=== PATIENT | male | born 1945 | race Two or more races ===

== ENCOUNTER 2024-01-25 18:38 | Inpatient (IN) | payer OTHER, MEDICAID ==
[~2024-01-25] VITALS: Ht 177.8 cm; Wt 84.6 kg
[2024-01-25] MEDS: ONDANSETRON HCL 4 MG/2 ML VIAL IV ONE (20:20)
[2024-01-25] MEDS: MORPHINE SULFATE 4 MG/ML SYR/VIAL IV ONE (20:20)
[2024-01-25 20:27] LABS: Eosinophils # (auto) 0 10 ^3/uL (0-0.8); Eosinophils % (auto) 0.1 % (0.0-7.0); Hemoglobin 7.4 g/dL (13.5-17.5); Red Cell Distribution Width 19.4 % (11.8-14.3)
[2024-01-25 20:29] LABS: Basophils # (auto) 0 10 ^3/uL (0-0.2); Basophils % (auto) 0.3 % (0.0-2.0); Hematocrit 23.5 % (41.0-53.0); Lymphocytes # (auto) 1.1 10 ^3/uL (0.4-5.4); Lymphocytes % (auto) 8.1 % (10.0-50.0); Mean Corpuscular Hemoglobin 24.7 pg (28.0-32.0); Mean Corpuscular Hgb Conc. 31.5 g/dL (32.0-36.0); Mean Corpuscular Volume 78.3 fL (80.0-100.0); Monocytes # (auto) 0.7 10 ^3/uL (0-1.3); Monocytes % (auto) 4.9 % (0.0-12.0); Neutrophils # (auto) 12.2 10 ^3/uL (1.6-8.6); Neutrophils % (auto) 86.6 % (37.0-80.0); Platelet Count (auto) 462 10^3/uL (140-450); White Blood Cell 14.1 10^3/uL (4.4-10.8)
[2024-01-25 20:35] VITALS: PULSE 81; RESP 15; O2SAT 99
[2024-01-25 20:39] LABS: Anion Gap 12 (5-15); Carbon Dioxide 17 mmol/L (20-31); Chloride 110 mmol/L (98-107); Potassium 4.7 mmol/L (3.5-5.1); Sodium 139 mmol/L (136-145)
[2024-01-25 20:44] LABS: Glucose 172 mg/dL (74-106); INR 1.24 (0.9-1.15); Partial Thromboplastin Time 29.3 SEC (24.5-34.5); Prothrombin Time 12.9 sec (9.3-11.8)
[2024-01-25 20:45] LABS: Alkaline Phosphatase 59 U/L (46-116); BUN/Creatinine Ratio 14.8 (10.0-20.0); Blood Urea Nitrogen 42 mg/dL (9-23)
[2024-01-25 20:46] LABS: Albumin 3.9 g/dL (3.2-4.8); Aspartate Aminotransferase 16 U/L (13-40)
[2024-01-25 20:47] LABS: Bilirubin, Total 0.4 mg/dL (0.2-1.0); Total Protein 7.4 g/dL (5.7-8.2)
[2024-01-25 21:26] LABS: Lactic Acid w/Reflex 3.2 mmol/L (0.4-2.0)
[2024-01-25 21:37] LABS: Alanine Aminotransferase < 9 U/L (7-40)
[2024-01-25] MEDS: PIPERACILLIN-TAZO 4.5GM 100 ML IV ONE (21:43)
[2024-01-25] MEDS: SODIUM CHLORIDE 0.9% 1,000 ML IV ONE (21:43)
[2024-01-25 22:09] LABS: Hypochromia Slight; Platelet Estimate Increased
[2024-01-25 22:10] LABS: Ovalocytes FEW
[2024-01-26] VITALS (15 sets, daily range): BP systolic 99–139; BP diastolic 44–80; PULSE 52–90; RESP 16–20; TEMP 97.5–98.7; O2SAT 95–100
[2024-01-26] MEDS ORDERED: ACETAMINOPHEN 325 MG TAB PO PRN
[2024-01-26] MEDS ORDERED: ONDANSETRON HCL 4 MG/2 ML VIAL IV PRN
[2024-01-26] MEDS: cefTRIAXone 1GM/50ML D5W 50 ML IV SCH (00:13)
[2024-01-26 01:03] LABS: Basophils # (auto) 0 10 ^3/uL (0-0.2); Eosinophils # (auto) 0 10 ^3/uL (0-0.8); Monocytes # (auto) 0.7 10 ^3/uL (0-1.3)
[2024-01-26 01:05] LABS: Basophils % (auto) 0.2 % (0.0-2.0); Hematocrit 18.2 % (41.0-53.0); Lymphocytes # (auto) 1.1 10 ^3/uL (0.4-5.4); Lymphocytes % (auto) 8.4 % (10.0-50.0); Mean Corpuscular Hemoglobin 25.7 pg (28.0-32.0); Mean Corpuscular Hgb Conc. 32.6 g/dL (32.0-36.0); Monocytes % (auto) 5.2 % (0.0-12.0); Neutrophils # (auto) 11.4 10 ^3/uL (1.6-8.6); Neutrophils % (auto) 86.2 % (37.0-80.0); Platelet Count (auto) 346 10^3/uL (140-450); Red Cell Distribution Width 19.4 % (11.8-14.3); White Blood Cell 13.2 10^3/uL (4.4-10.8)
[2024-01-26 01:19] LABS: Hemoglobin 5.9 g/dL (13.5-17.5)
[2024-01-26 02:48] LABS: Hypochromia Slight; Platelet Estimate Adequate
[2024-01-26] MEDS ORDERED: APIX2.5T PO (03:32)
[2024-01-26] MEDS: HYDROcodone-ACET 5/325MG TAB PO PRN (04:18)
[2024-01-26] MEDS: MORPHINE SULFATE 4 MG/ML SYR/VIAL IV PRN (09:25)
[2024-01-26 11:03] LABS: Basophils # (auto) 0.1 10 ^3/uL (0-0.2); Basophils % (auto) 0.5 % (0.0-2.0); Eosinophils # (auto) 0 10 ^3/uL (0-0.8); Eosinophils % (auto) 0.1 % (0.0-7.0); Hematocrit 26.9 % (41.0-53.0); Hemoglobin 8.6 g/dL (13.5-17.5); Lymphocytes # (auto) 1.7 10 ^3/uL (0.4-5.4); Lymphocytes % (auto) 9.1 % (10.0-50.0); Mean Corpuscular Hemoglobin 25.7 pg (28.0-32.0); Mean Corpuscular Hgb Conc. 31.8 g/dL (32.0-36.0); Mean Corpuscular Volume 80.8 fL (80.0-100.0); Monocytes # (auto) 1.1 10 ^3/uL (0-1.3); Monocytes % (auto) 5.8 % (0.0-12.0); Neutrophils # (auto) 15.8 10 ^3/uL (1.6-8.6); Neutrophils % (auto) 84.5 % (37.0-80.0); Nucleated Red Blood Cells % 0.1 %; Platelet Count (auto) 434 10^3/uL (140-450); Red Blood Cells 3.33 10^6/uL (4.5-5.90); Red Cell Distribution Width 18.6 % (11.8-14.3); White Blood Cell 18.8 10^3/uL (4.4-10.8)
[2024-01-26 11:13] LABS: Chloride 111 mmol/L (98-107); Potassium 4.8 mmol/L (3.5-5.1); Sodium 141 mmol/L (136-145)
[2024-01-26 11:14] LABS: Anion Gap 13 (5-15); Calcium 11.2 mg/dL (8.7-10.4); Carbon Dioxide 17 mmol/L (20-31)
[2024-01-26 11:19] LABS: BUN/Creatinine Ratio 13.8 (10.0-20.0); Blood Urea Nitrogen 42 mg/dL (9-23); Glucose 121 mg/dL (74-106)
[2024-01-26 11:24] LABS: Lactic Acid w/Reflex 3.8 mmol/L (0.4-2.0)
[2024-01-26 13:26] LABS: Basophils # (auto) 0.1 10 ^3/uL (0-0.2); Basophils % (auto) 0.3 % (0.0-2.0); Eosinophils # (auto) 0 10 ^3/uL (0-0.8); Hematocrit 24.4 % (41.0-53.0); Hemoglobin 7.9 g/dL (13.5-17.5); Lymphocytes # (auto) 0.9 10 ^3/uL (0.4-5.4); Lymphocytes % (auto) 4.4 % (10.0-50.0); Mean Corpuscular Hemoglobin 25.9 pg (28.0-32.0); Mean Corpuscular Hgb Conc. 32.4 g/dL (32.0-36.0); Mean Corpuscular Volume 79.9 fL (80.0-100.0); Monocytes % (auto) 5.2 % (0.0-12.0); Neutrophils # (auto) 17.8 10 ^3/uL (1.6-8.6); Neutrophils % (auto) 90.1 % (37.0-80.0); Platelet Count (auto) 395 10^3/uL (140-450); Red Blood Cells 3.06 10^6/uL (4.5-5.90); Red Cell Distribution Width 18.9 % (11.8-14.3); White Blood Cell 19.7 10^3/uL (4.4-10.8)
[2024-01-26] MEDS: SODIUM CHLORIDE 0.9% 1,000 ML IV SCH (16:10)
[2024-01-26 22:20] LABS: Urine Bacteria None Seen /hpf (None Seen)
[2024-01-26 22:31] LABS: Basophils # (auto) 0.1 10 ^3/uL (0-0.2); Eosinophils # (auto) 0 10 ^3/uL (0-0.8); Eosinophils % (auto) 0.2 % (0.0-7.0); Lymphocytes # (auto) 1.6 10 ^3/uL (0.4-5.4); Lymphocytes % (auto) 9.4 % (10.0-50.0); Neutrophils # (auto) 14.1 10 ^3/uL (1.6-8.6)
[2024-01-26 22:33] LABS: Basophils % (auto) 0.3 % (0.0-2.0); Hematocrit 23.6 % (41.0-53.0); Hemoglobin 7.8 g/dL (13.5-17.5); Mean Corpuscular Hemoglobin 26.5 pg (28.0-32.0); Mean Corpuscular Hgb Conc. 32.9 g/dL (32.0-36.0); Mean Corpuscular Volume 80.7 fL (80.0-100.0); Monocytes # (auto) 0.8 10 ^3/uL (0-1.3); Monocytes % (auto) 4.6 % (0.0-12.0); Neutrophils % (auto) 85.5 % (37.0-80.0); Platelet Count (auto) 357 10^3/uL (140-450); Red Blood Cells 2.92 10^6/uL (4.5-5.90); Red Cell Distribution Width 18.8 % (11.8-14.3); White Blood Cell 16.5 10^3/uL (4.4-10.8)
[2024-01-26 22:37] LABS: Urine Blood 3+ /uL (Negative); Urine Clarity Ex.Turbid (Clear); Urine Color Colorless (Yellow); Urine Protein, UAD TRACE (Negative); Urine Specific Gravity 1.005 (1.001-1.035); Urine Urobilinogen Normal (Negative); Urine WBC 468 /hpf (0 - 3); Urine WBC Clumps PRESENT /hpf (None Seen)
[2024-01-26 22:56] LABS: Albumin 3.4 g/dL (3.2-4.8); Alkaline Phosphatase 49 U/L (46-116); Anion Gap 8 (5-15); Aspartate Aminotransferase 15 U/L (13-40); BUN/Creatinine Ratio 15.3 (10.0-20.0); Blood Urea Nitrogen 44 mg/dL (9-23); Calcium 10.4 mg/dL (8.7-10.4); Carbon Dioxide 21 mmol/L (20-31); Chloride 113 mmol/L (98-107); Glucose 137 mg/dL (74-106); Sodium 142 mmol/L (136-145)
[2024-01-26 22:57] LABS: Bilirubin, Total 0.7 mg/dL (0.2-1.0); Total Protein 6.2 g/dL (5.7-8.2)
[2024-01-26 23:00] LABS: Alanine Aminotransferase < 9 U/L (7-40)
[2024-01-27] VITALS (9 sets, daily range): BP systolic 108–127; BP diastolic 48–61; PULSE 54–70; RESP 17–19; TEMP 97.8–98.8; O2SAT 94–100
[2024-01-27 06:43] LABS: Anion Gap 7 (5-15); Carbon Dioxide 22 mmol/L (20-31); Chloride 114 mmol/L (98-107); Sodium 143 mmol/L (136-145)
[2024-01-27 06:44] LABS: Calcium 10.8 mg/dL (8.7-10.4)
[2024-01-27 06:49] LABS: BUN/Creatinine Ratio 15.9 (10.0-20.0); Blood Urea Nitrogen 41 mg/dL (9-23); Glucose 104 mg/dL (74-106)
[2024-01-27] MEDS ORDERED: PROPOFOL 10 MG/ML 20 ML IV ONE (09:56)
[2024-01-27] MEDS ORDERED: ONDANSETRON HCL 4 MG/2 ML VIAL ONE (09:56)
[2024-01-27] MEDS ORDERED: LIDOCAINE 2% (LOCAL ANESTH.) PF 5ml SDV ONE (09:56)
[2024-01-27] MEDS ORDERED: GLYCOPYRROLATE 0.2 MG/ML 1ML VIAL ONE (09:56)
[2024-01-27] MEDS ORDERED: LIDOCAINE HCL 2% TOP JELLY 5ML TOP ONE (09:56)
[2024-01-27] MEDS ORDERED: DexAMETHasone SOD PHOS 10MG/1ML VIAL INJ ONE (09:57)
[2024-01-27] MEDS ORDERED: fentaNYL CITRATE 100 MCG/2 ML VL ONE ×2 (10:00→10:39)
[2024-01-27] MEDS ORDERED: KETAMINE 50mg/ML 1ml syringe ONE (10:00)
[2024-01-27] MEDS ORDERED: ePHEDrine SULFATE 50 MG/ML AMP ONE (10:18)
[2024-01-27] MEDS ORDERED: BISACODYL 10 MG RECT SUPP PR PRN (11:15)
[2024-01-27] MEDS ORDERED: HYDROmorphone HCL 2 MG/ML VL/or syr IV PRN (11:30)
[2024-01-27] MEDS ORDERED: hydrALAZINE HCL 20 MG/ML VL IV PRN (11:30)
[2024-01-27] MEDS ORDERED: ePHEDrine SULFATE 50 MG/ML AMP IV PRN (11:30)
[2024-01-27] MEDS ORDERED: fentaNYL CITRATE 100 MCG/2 ML VL IV PRN (11:30)
[2024-01-27] MEDS ORDERED: NALOXONE HCL 0.4 MG/ML VIAL IV PRN (11:30)
[2024-01-27] MEDS ORDERED: ONDANSETRON HCL 4 MG/2 ML VIAL IV PRN (11:30)
[2024-01-27] MEDS ORDERED: FLUMAZENIL 0.1 MG/ML INJ 10ML MDV IV PRN (11:30)
[2024-01-27] MEDS ORDERED: oxyCODONE HCL 5MG TAB PO PRN (11:30)
[2024-01-27] MEDS: OXYBUTYNIN CHL 5 MG TAB PO SCH (21:08)
[2024-01-28] VITALS (7 sets, daily range): BP systolic 110–133; BP diastolic 55–71; PULSE 62–68; RESP 17–19; TEMP 97.9–98.5; O2SAT 93–100
[2024-01-28] MEDS: MAGNESIUM CITRATE SOLUTION 300 ML BTL PO ONE (05:34)
[2024-01-28 08:41] LABS: Chloride 113 mmol/L (98-107); Potassium 4.8 mmol/L (3.5-5.1); Sodium 142 mmol/L (136-145)
[2024-01-28 08:42] LABS: Anion Gap 9 (5-15); Calcium 10.2 mg/dL (8.7-10.4); Carbon Dioxide 20 mmol/L (20-31)
[2024-01-28 08:47] LABS: BUN/Creatinine Ratio 18.3 (10.0-20.0); Blood Urea Nitrogen 36 mg/dL (9-23); Glucose 113 mg/dL (74-106)
[2024-01-28] MEDS ORDERED: CEPH500C PO (15:56)
== END 2024-01-28 17:50 | disposition home or self-care (01) | DRG 853 ==
LOC: ER 18:38 → TELE-WESTW 01-26 00:02 → TELE 01-26 00:02 → TELE-WESTW 01-26 02:44
PROVIDERS: ADMIT Nurse Practitioner Family; ATTEND Nurse Practitioner Family
PROC: 30233N1 Transfusion of Nonautologous Red Blood Cells into Peripheral Vein, Percutaneous Approach (ICD-10-PCS; 2024-01-26)
PROC: 0V508ZZ Destruction of Prostate, Via Natural or Artificial Opening Endoscopic (ICD-10-PCS; 2024-01-27)
PROC: 0TBB8ZX Excision of Bladder, Via Natural or Artificial Opening Endoscopic, Diagnostic (ICD-10-PCS; 2024-01-27)
PROC: 0TBB8ZZ Excision of Bladder, Via Natural or Artificial Opening Endoscopic (ICD-10-PCS; principal; 2024-01-27 09:58)
DX: A41.9 Sepsis, unspecified organism (principal); N17.0 Acute kidney failure with tubular necrosis; N13.6 Pyonephrosis; C67.9 Malignant neoplasm of bladder, unspecified; D64.9 Anemia, unspecified; E78.5 Hyperlipidemia, unspecified; J44.9 Chronic obstructive pulmonary disease, unspecified; N18.9 Chronic kidney disease, unspecified; I12.9 Hypertensive chronic kidney disease with stage 1 through stage 4 chronic kidney disease, or unspecified chronic kidney disease; N40.1 Benign prostatic hyperplasia with lower urinary tract symptoms; R33.8 Other retention of urine; R31.0 Gross hematuria; Z85.46 Personal history of malignant neoplasm of prostate; Z87.891 Personal history of nicotine dependence; Z83.3 Family history of diabetes mellitus; Z80.8 Family history of malignant neoplasm of other organs or systems; Z82.49 Family history of ischemic heart disease and other diseases of the circulatory system; Z80.0 Family history of malignant neoplasm of digestive organs; Z79.01 Long term (current) use of anticoagulants; Z79.899 Other long term (current) drug therapy
CPT/HCPCS: 36415; 74176; 80048; 80053; 81001; 83605; 85025; 86850; 86900; 86901; 86920; 87040; 87081; 87086; G0378; J1100; J2003; J2405; J2543; J2704

== ENCOUNTER 2024-02-06 15:57 | Inpatient (IN) | payer OTHER, MEDICAID ==
[~2024-02-06] VITALS: Ht 180.3 cm; Wt 75.0 kg
[~2024-02-06 15:57] MED LIST: APIX2.5T PO; CEPH500C PO
[2024-02-06 16:58] LABS: Basophils # (auto) 0.1 10 ^3/uL (0-0.2); Basophils % (auto) 0.4 % (0.0-2.0); Eosinophils # (auto) 0.3 10 ^3/uL (0-0.8); Eosinophils % (auto) 1.6 % (0.0-7.0); Hematocrit 24.2 % (41.0-53.0); Hemoglobin 7.9 g/dL (13.5-17.5); Lymphocytes # (auto) 1.5 10 ^3/uL (0.4-5.4); Lymphocytes % (auto) 9.2 % (10.0-50.0); Mean Corpuscular Hemoglobin 25.6 pg (28.0-32.0); Mean Corpuscular Hgb Conc. 32.6 g/dL (32.0-36.0); Mean Corpuscular Volume 78.6 fL (80.0-100.0); Monocytes # (auto) 0.8 10 ^3/uL (0-1.3); Monocytes % (auto) 4.7 % (0.0-12.0); Neutrophils # (auto) 13.9 10 ^3/uL (1.6-8.6); Neutrophils % (auto) 84.1 % (37.0-80.0); Platelet Count (auto) 414 10^3/uL (140-450); Red Blood Cells 3.08 10^6/uL (4.5-5.90); White Blood Cell 16.5 10^3/uL (4.4-10.8)
[2024-02-06 16:59] LABS: Red Cell Distribution Width 20.2 % (11.8-14.3)
[2024-02-06 17:05] LABS: Urine Bacteria FEW /hpf (None Seen); Urine Blood 3+ /uL (Negative); Urine Clarity Turbid (Clear); Urine Color Light-Orange (Yellow); Urine Protein, UAD 2+ (Negative); Urine Urobilinogen Normal (Negative); Urine WBC 417 /hpf (0 - 3); Urine WBC Clumps PRESENT /hpf (None Seen); Urine pH 5.5 (5.0-9.0)
[2024-02-06 17:24] LABS: Alanine Aminotransferase 13 U/L (7-40); Albumin 3.5 g/dL (3.2-4.8); Alkaline Phosphatase 63 U/L (46-116); Anion Gap 3 (5-15); Aspartate Aminotransferase 21 U/L (13-40); Bilirubin, Total 0.4 mg/dL (0.2-1.0); Blood Urea Nitrogen 20 mg/dL (9-23); Calcium 10.3 mg/dL (8.7-10.4); Carbon Dioxide 25 mmol/L (20-31); Chloride 108 mmol/L (98-107); Glucose 92 mg/dL (74-106); Lipase 21 U/L (12-53); Potassium 4.7 mmol/L (3.5-5.1); Sodium 136 mmol/L (136-145); Total Protein 6.2 g/dL (5.7-8.2)
[2024-02-06] MEDS: PIPERACILLIN-TAZOB 3.375GM 100 ML IV ONE (20:14)
[2024-02-06] MEDS: HYDROcodone-ACET 5/325MG TAB PO ONE (20:15)
[2024-02-06] MEDS ORDERED: ONDANSETRON HCL 4 MG/2 ML VIAL IV PRN (20:30)
[2024-02-06] MEDS ORDERED: ACETAMINOPHEN 325 MG TAB PO PRN (20:30)
[2024-02-06] MEDS: SODIUM CHLORIDE 0.9% 1,000 ML IV ONE (22:00)
[2024-02-07] VITALS (9 sets, daily range): BP systolic 105–133; BP diastolic 48–71; PULSE 58–68; RESP 17–20; TEMP 97.8–99; O2SAT 96–98
[2024-02-07] MEDS: MELATONIN 5 MG TAB PO PRN (00:52)
[2024-02-07] MEDS: HYDROcodone-ACET 5/325MG TAB PO PRN (05:29)
[2024-02-07 07:25] LABS: Basophils # (auto) 0.1 10 ^3/uL (0-0.2); Eosinophils # (auto) 0.4 10 ^3/uL (0-0.8); Eosinophils % (auto) 2.6 % (0.0-7.0); Hemoglobin 7.5 g/dL (13.5-17.5); Monocytes # (auto) 0.8 10 ^3/uL (0-1.3); Red Blood Cells 2.92 10^6/uL (4.5-5.90); White Blood Cell 14.6 10^3/uL (4.4-10.8)
[2024-02-07 07:28] LABS: Basophils % (auto) 0.7 % (0.0-2.0); Hematocrit 22.8 % (41.0-53.0); Lymphocytes # (auto) 1.1 10 ^3/uL (0.4-5.4); Lymphocytes % (auto) 7.6 % (10.0-50.0); Mean Corpuscular Hemoglobin 25.8 pg (28.0-32.0); Mean Corpuscular Volume 78.3 fL (80.0-100.0); Monocytes % (auto) 5.8 % (0.0-12.0); Neutrophils # (auto) 12.2 10 ^3/uL (1.6-8.6); Neutrophils % (auto) 83.3 % (37.0-80.0); Platelet Count (auto) 363 10^3/uL (140-450); Red Cell Distribution Width 20.2 % (11.8-14.3)
[2024-02-07 07:32] LABS: Chloride 107 mmol/L (98-107); Potassium 4.6 mmol/L (3.5-5.1); Sodium 136 mmol/L (136-145)
[2024-02-07 07:33] LABS: Anion Gap 6 (5-15); Carbon Dioxide 23 mmol/L (20-31)
[2024-02-07 07:34] LABS: Calcium 10.4 mg/dL (8.7-10.4)
[2024-02-07 07:39] LABS: BUN/Creatinine Ratio 9.5 (10.0-20.0); Blood Urea Nitrogen 18 mg/dL (9-23); Glucose 81 mg/dL (74-106)
[2024-02-07] MEDS: PIPERACILLIN-TAZOB 3.375GM 100 ML IV SCH (09:01)
[2024-02-07] MEDS: FAMOTIDINE 20 MG TAB PO SCH (09:01)
[2024-02-07] MEDS ORDERED: AUG875T PO (14:49)
== END 2024-02-07 18:30 | disposition home or self-care (01) | DRG 687 ==
LOC: ER 15:57 → OVERFLOW 20:18 → CENTRAL 20:31 → OVERFLOW 21:31 → CENTRAL 23:54
PROVIDERS: ADMIT Nurse Practitioner Family; ATTEND Nurse Practitioner Family
DX: C67.9 Malignant neoplasm of bladder, unspecified (principal); N17.9 Acute kidney failure, unspecified; T83.511A Infection and inflammatory reaction due to indwelling urethral catheter, initial encounter; N39.0 Urinary tract infection, site not specified; N40.0 Benign prostatic hyperplasia without lower urinary tract symptoms; E11.22 Type 2 diabetes mellitus with diabetic chronic kidney disease; I12.9 Hypertensive chronic kidney disease with stage 1 through stage 4 chronic kidney disease, or unspecified chronic kidney disease; K59.00 Constipation, unspecified; D64.9 Anemia, unspecified; E78.5 Hyperlipidemia, unspecified; J44.9 Chronic obstructive pulmonary disease, unspecified; N18.30 Chronic kidney disease, stage 3 unspecified; Z85.819 Personal history of malignant neoplasm of unspecified site of lip, oral cavity, and pharynx; Z85.51 Personal history of malignant neoplasm of bladder; Z95.0 Presence of cardiac pacemaker; Z80.8 Family history of malignant neoplasm of other organs or systems; Z82.49 Family history of ischemic heart disease and other diseases of the circulatory system; Z79.01 Long term (current) use of anticoagulants; Z79.4 Long term (current) use of insulin
CPT/HCPCS: 36415; 74176; 76775; 80048; 80053; 81001; 83605; 83690; 84484; 85025; 87040; 87081; 87086; 87088; 87186; 93005; G0378; J2543